=== PATIENT | female | born 2000 ===

== ENCOUNTER → 2021-07-20 | Outpatient (CLI) | payer BC ==
[~2021-07-20] MED LIST: GAS RELIEF80 MG PO; RT ALBUTEROL I6.8 GM IH; SINGULAIR10 MG PO; TYLENOL 325MG325 MG PO
== END ==
LOC: RAD 12:31
DX: R05.1 Acute cough (principal); R61 Generalized hyperhidrosis

== ENCOUNTER → 2021-11-03 | Outpatient (CLI) | payer BC | LOC: RAD 07:59 | DX: M43.27 Fusion of spine, lumbosacral region (principal); R10.9 Unspecified abdominal pain | CPT/HCPCS: Q9967 ==